=== PATIENT | female | born 1955 | race Caucasian/White ===

== ENCOUNTER 2020-03-27 12:30 | Emergency (ER) | payer MEDICARE, OTHER, SELFPAY ==
[2020-03-27] VITALS (19 sets, daily range): BP systolic 114–154; BP diastolic 56–75; PULSE 73–93; RESP 12–23; TEMP 36.8; O2SAT 82–98; BMI 40.3
[2020-03-27] MEDS: ONDANSETRON 4 MG/2 ML INJ IV (13:23)
--- NOTE | 2020-03-27 13:25 | DI.CT.S_ITS ---
PROCEDURE: CT HEAD/BRAIN WO CON INDICATIONS: dizzy TECHNIQUE: Noncontrast 4.5 mm thick angled axial sections acquired from the foramen magnum to the vertex, with coronal and sagittal reformats. For radiation dose reduction, the following was used: automated exposure control, adjustment of mA and/or kV according to patient size. COMPARISON: None. FINDINGS: Image quality: Excellent. CSF spaces: Basal cisterns are patent. No extra-axial fluid collections. The ventricles are symmetric in size and shape. Brain: No intracranial bleeds or masses. There is cerebral volume loss for age, with resultant ventricular and sulcal prominence. There are periventricular and deep white matter chronic small vessel ischemic changes. There is intracranial internal carotid artery atherosclerosis. Skull and face: Calvarium and visualized facial bones appear intact, without suspicious lesions. Incidental note is made of hyperostosis frontalis. This is not considered to be pathologic in a woman of this age. Sinuses: Visualized sinuses and mastoids are clear. IMPRESSION: Unremarkable intracranial study for age, without an imaging explanation found for the patient's presenting history. If it would be helpful for clinical management decision making, please consider a dedicated IAC protocol MRI (performed without and with contrast) for further evaluation (assuming that there is no contraindication). Dictated by: Noah Blackburn M.D. on 03/27/2020 at 12:32 Approved by: Noah Blackburn M.D. on 03/27/2020 at 12:33
--- NOTE | 2020-03-27 13:28 | ED.DIZZY ---
HPI - Dizziness <MATI Marie-BC - Last Filed: 03/27/20 18:52> General Chief Complaint: Dizziness Stated Complaint: Vertigo Issues Time Seen by Provider: 03/27/20 12:47 Source: patient Mode of arrival: Wheelchair Limitations: no limitations History of Present Illness HPI Narrative: The patient is a 65-year-old female nonsmoker with history of type 2 diabetes and hypertension who presents with a chief complaint of ?I feel like I have been spinning for the past 2 weeks. She states it is getting worse over the past week. She denies any falls or trauma. She does take Dramamine every 4 hours or so. She states that she feels like her ?brain is swimming and that her ?mind is spinning whenever she is moving her head or getting up or down or changing her position. She states that it feels better if she just holds still. She feels nauseous, but has not vomited. She complains of soft stools but no diarrhea. She denies any cough or congestion, does complain of allergy symptoms that have been really bad since November. She states that she has pain and pressure in her sinuses radiating down to her jaw. She does take allergy medicine as well. She denies any ear pain or sore throat. She denies any nasal congestion. She denies any confusion or slurred speech. Related Data Previous Rx's Medication Instructions Recorded meclizine 25 mg PO TID PRN #14 tab 03/27/20 ondansetron 4 mg PO Q6H PRN #20 tab 03/27/20 Allergies Allergy/AdvReac Type Severity Reaction Status Date / Time codeine [CODEINE] Allergy Unknown NAUSEA Verified 03/27/20 12:45 Review of Systems <CHRISTINE Marie - Last Filed: 03/27/20 18:52> Review of Systems Narrative: GENERAL: Denies chills, fatigue, malaise, fever, sweats. HEENT: See HPI RESPIRATORY: Denies dyspnea, cough, wheezing, hemoptysis, sputum. CARDIOVASCULAR: Denies chest pain, palpitations, orthopnea, edema, GASTROINTESTINAL: Denies nausea, vomiting, abdominal pain, diarrhea, constipation, melena. : Denies dysuria, frequency, incontinence, hematuria, urinary retention. MUSCULOSKELETAL: denies weakness, joint pain, or bony pain SKIN: Denies rash, skin lesions, or other NEUROLOGIC: See HPI PSYCHIATRIC: No concerning psychosocial issues. 12 point review of systems is negative except for those stated above Patient History <MARIA LUISA Marie - Last Filed: 03/27/20 18:52> Medical History (Updated 03/27/20 @ 18:30 by MARIA LUISA Marie) Type 2 diabetes mellitus (Acute) Social History Smoking Status: Unknown if ever smoked Smoking Status: Unknown if ever smoked alcohol intake frequency: holidays/special occasions only Substance Use Type: does not use Exam <MARIA LUISA Marie - Last Filed: 03/27/20 18:52> Narrative Exam Narrative: GENERAL: This is a well-nourished, well-developed patient, no acute distress HEAD: Atraumatic. Normocephalic. No temporal or scalp tenderness. EYES: Pupils equal round and reactive. Extraocular motions intact. No scleral icterus. No injection or drainage. ENT: Nose without bleeding, purulent drainage or septal hematoma. Throat without erythema, tonsillar hypertrophy or exudate. Uvula midline. Airway patent. Horizontal nystagmus noted. No vertical nystagmus. Bilateral tympanic membranes with pressure, but pearly hagan NECK: Trachea midline. No JVD or lymphadenopathy. Supple, nontender, no meningeal signs. CARDIOVASCULAR: Regular rate and rhythm RESPIRATORY: Clear to auscultation. Breath sounds equal bilaterally. No wheezes, rales, or rhonchi. No cough. No increased respiratory effort GASTROINTESTINAL: Abdomen soft, non-tender, nondistended. No hepato-splenomegaly, or palpable masses. No guarding. EXTREMITIES: No clubbing, cyanosis, or edema. No joint tenderness, effusion, or edema noted. BACK: Nontender without deformity or crepitance. No flank tenderness. NEURO: AOx3. SKIN: No rash or erythema on visible skin Initial Vital Signs Initial Vital Signs: Vital Signs Temperature 98.2 F 03/27/20 12:40 Pulse Rate 92 H 03/27/20 12:40 Respiratory Rate 14 03/27/20 12:40 Blood Pressure 154/66 H 03/27/20 12:40 Pulse Oximetry 97 03/27/20 12:40 <Galen Crouch MD - Last Filed: 03/28/20 07:57> Initial Vital Signs Initial Vital Signs: Vital Signs Temperature 98.2 F 03/27/20 12:40 Pulse Rate 92 H 03/27/20 12:40 Respiratory Rate 14 03/27/20 12:40 Blood Pressure 154/66 H 03/27/20 12:40 Pulse Oximetry 97 03/27/20 12:40 Scores <CHRISTINE Marie - Last Filed: 03/27/20 18:52> GCS [place] coma scale eye opening: Spontaneous [place] coma scale verbal response: Orientated Jason coma scale motor response: Obey commands [place] coma scale total score: 15 NIH Stroke Scale Level of Conciousness: Alert, keenly responsive Ask month/age: Answers both questions correctly. Open/close eyes, close hand: Performs both tasks correctly Best gaze horizontal: Normal Visual casey: No visual loss Facial palsy: Normal symetrical movement Left arm drift: No drift for full 10 sec Right arm drift: No drift for full 10 sec Left leg drift: No drift for full 10 sec Right leg drift: No drift for full 10 sec Limb ataxia: Absent Sensory on face/arms/legs: Normal, no sensory loss Best language: No aphasia, normal Dysarthria: Normal Extinction or inattention: No abnormality Total NIH Stroke scale score: 0 Course <CHRISTINE Marie - Last Filed: 03/27/20 18:52> Orders Ordered: Discontinued Medications Sodium Chloride (Normal Saline 0.9%) 1,000 mls @ 1,000 mls/hr IV BOLUS ONE Stop: 03/27/20 14:25 Last Infusion: 03/27/20 16:50 Dose: 0 mls/hr Documented by: Admin: 03/27/20 13:45 Dose: 1,000 mls/hr Documented by: DAVIE Meclizine HCl (Antivert) 50 mg PO NOW ONE Stop: 03/27/20 16:49 Last Admin: 03/27/20 17:13 Dose: 50 mg Documented by: GARCÍA Ondansetron HCl (Zofran) 4 mg IV NOW ONE Stop: 03/27/20 13:11 Last Admin: 03/27/20 13:23 Dose: 4 mg Documented by: DAVIE Vital Signs Vital signs: Vital Signs - 8 hr 03/27/20 12:40 03/27/20 12:44 03/27/20 12:45 Temperature 98.2 F Pulse Rate 92 H 93 H 90 Respiratory Rate 14 Blood Pressure 154/66 H 154/66 H Pulse Oximetry 97 97 97 03/27/20 13:00 03/27/20 13:30 03/27/20 13:38 Temperature Pulse Rate 81 79 78 Respiratory Rate 19 20 Blood Pressure 143/65 H 126/60 Pulse Oximetry 98 97 98 03/27/20 14:00 03/27/20 14:30 03/27/20 14:35 Temperature Pulse Rate 73 86 80 Respiratory Rate 21 Blood Pressure 114/56 L 128/75 Pulse Oximetry 97 97 98 03/27/20 15:00 03/27/20 15:30 03/27/20 16:00 Temperature Pulse Rate 81 77 81 Respiratory Rate 14 18 17 Blood Pressure 122/58 L 123/58 L 129/60 Pulse Oximetry 98 97 97 03/27/20 17:19 03/27/20 17:20 03/27/20 17:30 Temperature Pulse Rate 80 81 78 Respiratory Rate 12 16 Blood Pressure 130/58 L Pulse Oximetry 82 L 97 98 03/27/20 17:31 03/27/20 18:05 03/27/20 18:30 Temperature Pulse Rate 79 92 H 79 Respiratory Rate 21 23 15 Blood Pressure 126/58 L Pulse Oximetry 98 97 97 03/27/20 18:31 Temperature Pulse Rate 79 Respiratory Rate 15 Blood Pressure 121/57 L Pulse Oximetry 97 <Galen Crouch MD - Last Filed: 03/28/20 07:57> Orders Ordered: Discontinued Medications Sodium Chloride (Normal Saline 0.9%) 1,000 mls @ 1,000 mls/hr IV BOLUS ONE Stop: 03/27/20 14:25 Last Infusion: 03/27/20 16:50 Dose: 0 mls/hr Documented by: Admin: 03/27/20 13:45 Dose: 1,000 mls/hr Documented by: DAVIE Meclizine HCl (Antivert) 50 mg PO NOW ONE Stop: 03/27/20 16:49 Last Admin: 03/27/20 17:13 Dose: 50 mg Documented by: GARCÍA Ondansetron HCl (Zofran) 4 mg IV NOW ONE Stop: 03/27/20 13:11 Last Admin: 03/27/20 13:23 Dose: 4 mg Documented by: DAVIE Vital Signs Vital signs: Vital Signs - 8 hr 03/27/20 12:40 03/27/20 12:44 03/27/20 12:45 Temperature 98.2 F Pulse Rate 92 H 93 H 90 Respiratory Rate 14 Blood Pressure 154/66 H 154/66 H Pulse Oximetry 97 97 97 03/27/20 13:00 03/27/20 13:30 03/27/20 13:38 Temperature Pulse Rate 81 79 78 Respiratory Rate 19 20 Blood Pressure 143/65 H 126/60 Pulse Oximetry 98 97 98 03/27/20 14:00 03/27/20 14:30 03/27/20 14:35 Temperature Pulse Rate 73 86 80 Respiratory Rate 21 Blood Pressure 114/56 L 128/75 Pulse Oximetry 97 97 98 03/27/20 15:00 03/27/20 15:30 03/27/20 16:00 Temperature Pulse Rate 81 77 81 Respiratory Rate 14 18 17 Blood Pressure 122/58 L 123/58 L 129/60 Pulse Oximetry 98 97 97 03/27/20 17:19 03/27/20 17:20 03/27/20 17:30 Temperature Pulse Rate 80 81 78 Respiratory Rate 12 16 Blood Pressure 130/58 L Pulse Oximetry 82 L 97 98 03/27/20 17:31 03/27/20 18:05 03/27/20 18:30 Temperature Pulse Rate 79 92 H 79 Respiratory Rate 21 23 15 Blood Pressure 126/58 L Pulse Oximetry 98 97 97 03/27/20 18:31 Temperature Pulse Rate 79 Respiratory Rate 15 Blood Pressure 121/57 L Pulse Oximetry 97 MDM - Dizziness <MATI Marie- - Last Filed: 03/27/20 18:52> Lab Data Result diagrams: 03/27/20 13:30 03/27/20 13:30 Labs: Lab Results 03/27/20 03/27/20 03/27/20 Range/Units 13:30 13:30 13:30 WBC 13.8 H (4.5-11.0) X10^3/uL RBC 4.60 (4.0-5.2) X10^6/uL Hgb 13.3 (12.0-16.0) g/dL Hct 40.0 (36-46) % MCV 87.0 (80-100) fL MCH 28.9 (26-34) PG MCHC 33.2 (30-36) % RDW 13.7 (11.6-14.8) % Plt Count 288 (150-400) X10^3/uL Neut % (Auto) 68.8 (50-75) % Lymph % (Auto) 20.8 L (25-40) % [place] % (Auto) 7.8 (3-14) % Eos % (Auto) 1.8 L (2-4) % Baso % (Auto) 0.8 (0-2) % Neut # (Auto) 9500 H (3953-5848) /uL Lymph # (Auto) 2900 (7474-7375) /uL [place] # (Auto) 1100 H (0-900) /uL Eos # (Auto) 200 (0-450) /uL Baso # (Auto) 100 (0-100) /uL PT 12.7 (10.1-12.7) SECONDS INR 1.1 (0.9-1.3) Sodium 140 (137-145) mmol/L Potassium 4.0 (3.4-5.1) mmol/L Chloride 102 (98-107) mmol/L Carbon Dioxide 27 (22-32) mmol/L BUN 19 H (7-17) mg/dL Creatinine 0.78 (0.52-1.04) mg/dL Estimated GFR > 60.0 (>60) mL/min BUN/Creatinine Ratio 24.4 H (6-22) Glucose 100 (80-110) mg/dL Calcium 10.1 (8.4-10.2) mg/dL Magnesium 1.8 (1.6-2.3) mg/dL Total Bilirubin 0.5 (0.2-1.3) mg/dL AST 36 (14-36) IU/L ALT 25 (<35) IU/L Alkaline Phosphatase 79 (38-126) U/L Troponin I < 0.012 (0.01-0.034) ng/mL Total Protein 8.4 H (6.3-8.2) g/dL Albumin 4.6 (3.5-5.0) g/dL Globulin 3.8 (1.7-4.1) g/dL Albumin/Globulin Ratio 1.2 (1.0-2.8) Urine RBC (0-5/HPF) Urine WBC (0-5/HPF) Ur Squamous Epith Cells (0-5/HPF) Urine Bacteria (None) Ur Culture Indicated? 03/27/20 03/27/20 Range/Units 14:33 16:06 WBC (4.5-11.0) X10^3/uL RBC (4.0-5.2) X10^6/uL Hgb (12.0-16.0) g/dL Hct (36-46) % MCV (80-100) fL MCH (26-34) PG MCHC (30-36) % RDW (11.6-14.8) % Plt Count (150-400) X10^3/uL Neut % (Auto) (50-75) % Lymph % (Auto) (25-40) % [place] % (Auto) (3-14) % Eos % (Auto) (2-4) % Baso % (Auto) (0-2) % Neut # (Auto) (3422-7355) /uL Lymph # (Auto) (0460-0446) /uL [place] # (Auto) (0-900) /uL Eos # (Auto) (0-450) /uL Baso # (Auto) (0-100) /uL PT (10.1-12.7) SECONDS INR (0.9-1.3) Sodium (137-145) mmol/L Potassium (3.4-5.1) mmol/L Chloride (98-107) mmol/L Carbon Dioxide (22-32) mmol/L BUN (7-17) mg/dL Creatinine (0.52-1.04) mg/dL Estimated GFR (>60) mL/min BUN/Creatinine Ratio (6-22) Glucose (80-110) mg/dL Calcium (8.4-10.2) mg/dL Magnesium (1.6-2.3) mg/dL Total Bilirubin (0.2-1.3) mg/dL AST (14-36) IU/L ALT (<35) IU/L Alkaline Phosphatase (38-126) U/L Troponin I < 0.012 (0.01-0.034) ng/mL Total Protein (6.3-8.2) g/dL Albumin (3.5-5.0) g/dL Globulin (1.7-4.1) g/dL Albumin/Globulin Ratio (1.0-2.8) Urine RBC None seen (0-5/HPF) Urine WBC 5-10/hpf H (0-5/HPF) Ur Squamous Epith Cells 1-5 /hpf (0-5/HPF) Urine Bacteria Occasional (0-1) (None) Ur Culture Indicated? Specimen cultured Urine Dip Bedside Urine Glucose Negative Bedside Urine Bilirubin - Negative Bedside Urine Ketone - Negative Urine Specific [place] 1.010 Bedside Urine Occult Blood +/- Bedside Urine pH 6.0 Bedside Urine Protein - Negative Bedside Urine Urobilinogen - Negative Bedside Urine Nitrite - Negative Bedside Urine Leukocytes ++ [address] scan - head: Radiologist's Impression: [address] [place] [id number] Scan Report Signed Patient: Bernard Montelongo VMR#: [id number] : 5Acct:[id number] Age/Sex: 65 / FDate of Service: 03/27/20 Loc: ED Accession Number: [id number] Procedure: CT head/brain wo con Ordering Provider: Claudia Ying [facility] PROCEDURE: CT HEAD/BRAIN WO CON INDICATIONS: dizzy TECHNIQUE: Noncontrast 4.5 mm thick angled axial sections acquired from the foramen magnum to the vertex, with coronal and sagittal reformats. For radiation dose reduction, the following was used: automated exposure control, adjustment of mA and/or kV according to patient size. COMPARISON: None. FINDINGS: Image quality: Excellent. CSF spaces: Basal cisterns are patent. No extra-axial fluid collections. The ventricles are symmetric in size and shape. Brain: No intracranial bleeds or masses. There is cerebral volume loss for age, with resultant ventricular and sulcal prominence. There are periventricular and deep white matter chronic small vessel ischemic changes. There is intracranial internal carotid artery atherosclerosis. Skull and face: Calvarium and visualized facial bones appear intact, without suspicious lesions. Incidental note is made of hyperostosis frontalis. This is not considered to be pathologic in a woman of this age. Sinuses: Visualized sinuses and mastoids are clear. IMPRESSION: Unremarkable intracranial study for age, without an imaging explanation found for the patient's presenting history. If it would be helpful for clinical management decision making, please consider a dedicated IAC protocol MRI (performed without and with contrast) for further evaluation (assuming that there is no contraindication). Dictated by: Noah Blackburn M.D. on 03/27/2020 at 12:32 Approved by: Noah Blackburn M.D. on 03/27/2020 at 12:33 ECG Data Attestation: I personally reviewed and interpreted this ECG as follows: Interpretation: Sinus rhythm. Ventricular 85. P.r. interval 140. QRS [address] Willa PERSAUD Narrative Medical decision making narrative: The patient is a 65-year-old female nonsmoker presents with a chief complaint of worsening spinning sensation over the past few weeks. Her exam correlates with BPPV given that she has vertigo symptoms when turning her head and moving. She has symptoms when she is staying still. She has initial negative troponin, 3 hour repeat troponin, normal head CT, NIH of 0. Head CT was done and given age risk factors of obesity and type 2 diabetes, but came back negative for any acute findings. She has a urine culture pending, though no urinary symptoms so we will hold off on treatment at this point time. She feels much improved after the above-stated therapies, is requesting to go home multiple times. We did contact physical therapy to see if they could come evaluate her, but unfortunately your too busy today. Patient plans on following up with primary care provider in the next few days. She will call her tomorrow. I did discuss the possibility of further imaging such as MRI, but patient would like to go home at this point time. I discussed at length strict return precautions including any neurological changes etcetera. Patient was able to ambulate steadily with a walker, states she feels much improved. Patient has no questions or concerns upon discharge and states understanding of return precautions as well as follow-up care. <Galen Crouch MD - Last Filed: 03/28/20 07:57> Lab Data Labs: Lab Results 03/27/20 03/27/20 03/27/20 Range/Units 13:30 13:30 13:30 WBC 13.8 H (4.5-11.0) X10^3/uL RBC 4.60 (4.0-5.2) X10^6/uL Hgb 13.3 (12.0-16.0) g/dL Hct 40.0 (36-46) % MCV 87.0 (80-100) fL MCH 28.9 (26-34) PG MCHC 33.2 (30-36) % RDW 13.7 (11.6-14.8) % Plt Count 288 (150-400) X10^3/uL Neut % (Auto) 68.8 (50-75) % Lymph % (Auto) 20.8 L (25-40) % [place] % (Auto) 7.8 (3-14) % Eos % (Auto) 1.8 L (2-4) % Baso % (Auto) 0.8 (0-2) % Neut # (Auto) 9500 H (8192-8299) /uL Lymph # (Auto) 2900 (8397-3951) /uL [place] # (Auto) 1100 H (0-900) /uL Eos # (Auto) 200 (0-450) /uL Baso # (Auto) 100 (0-100) /uL PT 12.7 (10.1-12.7) SECONDS INR 1.1 (0.9-1.3) Sodium 140 (137-145) mmol/L Potassium 4.0 (3.4-5.1) mmol/L Chloride 102 (98-107) mmol/L Carbon Dioxide 27 (22-32) mmol/L BUN 19 H (7-17) mg/dL Creatinine 0.78 (0.52-1.04) mg/dL Estimated GFR > 60.0 (>60) mL/min BUN/Creatinine Ratio 24.4 H (6-22) Glucose 100 (80-110) mg/dL Calcium 10.1 (8.4-10.2) mg/dL Magnesium 1.8 (1.6-2.3) mg/dL Total Bilirubin 0.5 (0.2-1.3) mg/dL AST 36 (14-36) IU/L ALT 25 (<35) IU/L Alkaline Phosphatase 79 (38-126) U/L Troponin I < 0.012 (0.01-0.034) ng/mL Total Protein 8.4 H (6.3-8.2) g/dL Albumin 4.6 (3.5-5.0) g/dL Globulin 3.8 (1.7-4.1) g/dL Albumin/Globulin Ratio 1.2 (1.0-2.8) Urine RBC (0-5/HPF) Urine WBC (0-5/HPF) Ur Squamous Epith Cells (0-5/HPF) Urine Bacteria (None) Ur Culture Indicated? 03/27/20 03/27/20 Range/Units 14:33 16:06 WBC (4.5-11.0) X10^3/uL RBC (4.0-5.2) X10^6/uL Hgb (12.0-16.0) g/dL Hct (36-46) % MCV (80-100) fL MCH (26-34) PG MCHC (30-36) % RDW (11.6-14.8) % Plt Count (150-400) X10^3/uL Neut % (Auto) (50-75) % Lymph % (Auto) (25-40) % [place] % (Auto) (3-14) % Eos % (Auto) (2-4) % Baso % (Auto) (0-2) % Neut # (Auto) (6549-7973) /uL Lymph # (Auto) (5976-5593) /uL [place] # (Auto) (0-900) /uL Eos # (Auto) (0-450) /uL Baso # (Auto) (0-100) /uL PT (10.1-12.7) SECONDS INR (0.9-1.3) Sodium (137-145) mmol/L Potassium (3.4-5.1) mmol/L Chloride (98-107) mmol/L Carbon Dioxide (22-32) mmol/L BUN (7-17) mg/dL Creatinine (0.52-1.04) mg/dL Estimated GFR (>60) mL/min BUN/Creatinine Ratio (6-22) Glucose (80-110) mg/dL Calcium (8.4-10.2) mg/dL Magnesium (1.6-2.3) mg/dL Total Bilirubin (0.2-1.3) mg/dL AST (14-36) IU/L ALT (<35) IU/L Alkaline Phosphatase (38-126) U/L Troponin I < 0.012 (0.01-0.034) ng/mL Total Protein (6.3-8.2) g/dL Albumin (3.5-5.0) g/dL Globulin (1.7-4.1) g/dL Albumin/Globulin Ratio (1.0-2.8) Urine RBC None seen (0-5/HPF) Urine WBC 5-10/hpf H (0-5/HPF) Ur Squamous Epith Cells 1-5 /hpf (0-5/HPF) Urine Bacteria Occasional (0-1) (None) Ur Culture Indicated? Specimen cultured Urine Dip Bedside Urine Glucose Negative Bedside Urine Bilirubin - Negative Bedside Urine Ketone - Negative Urine Specific [place] 1.010 Bedside Urine Occult Blood +/- Bedside Urine pH 6.0 Bedside Urine Protein - Negative Bedside Urine Urobilinogen - Negative Bedside Urine Nitrite - Negative Bedside Urine Leukocytes ++ 125 Esterase Discharge Plan Departure Patient Disposition: Home Clinical Impression: Vertigo Discharge Date/Time: 03/27/20 18:50 Instructions: DI for Vertigo, DI for Dizziness-Nonvertigo Activity Restrictions/Additional Instructions: Thank you for trusting us with your care today Please follow-up with primary care provider in the next few days. As I discussed you may benefit from physical therapy. I sent 2 prescriptions to [facility]. Please come back to the emergency department for any acute concerns. This includes concern of heart attack, stroke etcetera. Prescriptions: New meclizine 25 mg tablet 25 mg PO TID PRN (Reason: motion sickness) Qty: 14 RF: 0 ondansetron 4 mg tablet,disintegrating 4 mg PO Q6H PRN (Reason: nausea and vomiting) Qty: 20 RF: 0 Referrals: Jody Zee [Non-Staff] - Maria D Hicks DO [Primary Care Provider] - <Galen Crouch MD - Last Filed: 03/28/20 07:57> Cosign ED Attending Cosignature Attestation: I was immediately available in the department for consultation. This documentation has been reviewed and I agree with assessment and plan. Supervised by Galen Crouch MD
[2020-03-27] MEDS: SODIUM CHLORIDE 0.9% 1,000 ML 1000 ML IV (13:45)
[2020-03-27 13:46] LABS: Add Manual Diff / Slide Review NO; Basophils Absolute Auto 100 /uL (0-100); Basophils Percent Auto 0.8 % (0-2); Eosinophils Absolute Auto 200 /uL (0-450); Eosinophils Percent Auto 1.8 % (2-4); Hemoglobin 13.3 g/dL (12.0-16.0); Lymphocytes Absolute Auto 2900 /uL (1100-4500); Lymphocytes Percent Auto 20.8 % (25-40); Mean Corpuscular HGB Conc 33.2 % (30-36); Mean Corpuscular Hemoglobin 28.9 PG (26-34); Monocytes Absolute Auto 1100 /uL (0-900); Monocytes Percent Auto 7.8 % (3-14); Neutrophils Absolute Auto 9500 /uL (1500-7000); Neutrophils Percent Auto 68.8 % (50-75); Platelet Count 288 X10^3/uL (150-400); Red Cell Distribution Width 13.7 % (11.6-14.8); White Blood Cell Count 13.8 X10^3/uL (4.5-11.0)
[2020-03-27 13:56] LABS: INR 1.1 (0.9-1.3); Prothrombin Time 12.7 SECONDS (10.1-12.7)
[2020-03-27 14:02] LABS: Alanine Aminotransferase 25 IU/L (<35); Albumin 4.6 g/dL (3.5-5.0); Albumin Globulin Ratio 1.2 (1.0-2.8); Alkaline Phosphatase 79 U/L (38-126); Aspartate Aminotransferase 36 IU/L (14-36); BUN Creatinine Ratio 24.4 (6-22); Bilirubin Total 0.5 mg/dL (0.2-1.3); Blood Urea Nitrogen 19 mg/dL (7-17); Calcium 10.1 mg/dL (8.4-10.2); Carbon Dioxide 27 mmol/L (22-32); Chloride 102 mmol/L (98-107); Estimated Glomerular Filt Rate > 60.0 mL/min (>60); Globulin 3.8 g/dL (1.7-4.1); Glucose 100 mg/dL (80-110); HEMOLYSIS 27 (0-50); Magnesium 1.8 mg/dL (1.6-2.3); Sodium 140 mmol/L (137-145); Total Protein 8.4 g/dL (6.3-8.2)
[2020-03-27 14:11] LABS: Troponin I < 0.012 ng/mL (0.01-0.034)
[2020-03-27 14:46] LABS: RBC Urine None Seen (0-5/HPF)
[2020-03-27 15:13] LABS: Bacteria Urine Occasional (0-1); Culture Indicated Urine Specimen Cultured; Squamous Epithelial Cell Urine 1-5 /HPF (0-5/HPF); WBC Urine 5-10/HPF (0-5/HPF)
[2020-03-27 16:35] LABS: Troponin I < 0.012 ng/mL (0.01-0.034)
[2020-03-27] MEDS: MECLIZINE HCL 12.5 MG TABLET 50 MG PO (17:13)
== END 2020-03-27 18:50 | disposition home or self-care (01) ==
PROVIDERS: Emergency Provider Nurse Practitioner Family; Family Provider Internal Medicine; PCP Family Medicine; Referring Provider Internal Medicine
DX: R42 Dizziness and giddiness (principal); E11.9 Type 2 diabetes mellitus without complications; I10 Essential (primary) hypertension; R11.0 Nausea
CPT/HCPCS: 36415; 70450; 80053; 81003; 81015; 83735; 84484; 85025; 85610; 87077; 87086; 87147; 93005; 93010; 96361; 96374; 99284; J2405

== ENCOUNTER 2020-08-28 10:13 | Emergency (ER) | payer MEDICARE, OTHER, SELFPAY ==
--- NOTE | 2020-08-28 10:16 | ED.URI ---
HPI - URI/Sore Throat General Chief Complaint: Upper Respiratory Symptoms Stated Complaint: thinks she has strep throat Time Seen by Provider: 08/28/20 10:16 History of Present Illness HPI Narrative: 65-year-old woman with hypertension and type 2 diabetes presents with 5 days of increasing pharyngeal pain right greater than left, fatigue, poor sleep, decrease in taste, diarrhea but no fever, no cough no chest pain, vomiting, dyspnea, palpitations or skin changes/rashes. No obvious COVID exposure and no one else at home is ill Related Data Previous Rx's Medication Instructions Recorded meclizine 25 mg PO TID PRN #14 tab 03/27/20 ondansetron 4 mg PO Q6H PRN #20 tab 03/27/20 Allergies Allergy/AdvReac Type Severity Reaction Status Date / Time codeine [CODEINE] Allergy Unknown NAUSEA Verified 08/28/20 10:28 Review of Systems Review of Systems Narrative: Remainder of review of systems including constitutional, ENT, cardiovascular, respiratory, GI, , musculoskeletal, skin, neurologic and psychiatric systems reviewed and are unremarkable except as noted in HPI. Patient History Medical History Hypertension Type 2 diabetes mellitus Surgical History History of tonsillectomy and adenoidectomy Social History Smoking Status: Unknown if ever smoked Smoking Status: Unknown if ever smoked alcohol intake frequency: holidays/special occasions only Substance Use Type: does not use Exam Narrative Exam Narrative: General: Healthy appearing, in mild distress. Able to give a complete and coherent history. Well-nourished well-developed HEENT: Moist mucous membranes, normal sclera with reactive pupils, mild erythema over the right posterior tonsillar pillar without abscess, uvula deviation, or exudate Neck: No JVD, supple Respiratory: Lungs are clear to auscultation, no wheezing no rales no rhonchi. Full and symmetrical air movement Cardiac: Regular rate and rhythm, 3/6 systolic ejection murmur, no bruits Abdomen: Soft nontender good bowel tones, no flank pain Skin: Mildly diaphoretic, no rashes Psych: Cooperative, appropriate insight and affect Initial Vital Signs Initial Vital Signs: Vital Signs Temperature 98.0 F 08/28/20 10:23 Pulse Rate 96 H 08/28/20 10:23 Respiratory Rate 15 08/28/20 10:23 Blood Pressure 133/70 08/28/20 10:23 Pulse Oximetry 98 08/28/20 10:23 Course Orders Ordered: ED Orders 08/28/20 10:16 COVID19 Stat Vital Signs Vital signs: Vital Signs - 8 hr 08/28/20 10:23 Temperature 98.0 F Pulse Rate 96 H Respiratory Rate 15 Blood Pressure 133/70 Pulse Oximetry 98 MDM - URI/Sore Throat Medical Records Attestation: I reviewed the patient's medical records. Lab Data Attestation: I reviewed the patient's lab results. Labs: Lab Results 08/28/20 Range/Units 10:21 COVID-19 PCR Negative (Negative) Point of Care Testing Rapid Strep A Negative MDM Narrative Medical decision making narrative: 65-year-old woman with sore throat mild upper respiratory symptoms for the last 5 days. COVID and strep throat negative. No evidence of pneumonia and clinical exam and vitals do not suggest severe infection or sepsis. Conservative management. Reassurance is given. She is safe for home discharge Discharge Plan Departure Patient Disposition: Home Clinical Impression: Pharyngitis Qualifiers: Pharyngitis/tonsillitis etiology: unspecified etiology Qualified Code(s): J02.9 - Acute pharyngitis, unspecified Instructions: DI for Viral Pharyngitis Activity Restrictions/Additional Instructions: Thank you for coming in today You do not have COVID and you do not have strep throat. You do have some other virus that is causing your sore throat. Most viruses are going to get better within 7-10 days with conservative management. Please do use warm salt water washes to get rid of the yucky taste in the back of your throat. Using 400 mg of ibuprofen (2 [id number] pills) and 1 Tylenol every 6 hours can be very helpful in controlling pain. If you find that you are having worsening symptoms, developing any shortness of breath, a productive cough or new findings please feel free to return to the ER for further evaluation I hope you feel better quickly Prescriptions: No Action meclizine 25 mg tablet 25 mg PO TID PRN (Reason: motion sickness) Qty: 14 RF: 0 ondansetron 4 mg tablet,disintegrating 4 mg PO Q6H PRN (Reason: nausea and vomiting) Qty: 20 RF: 0 Referrals: Maria D Hicks DO [Primary Care Provider] -
[2020-08-28 10:23] VITALS: BP 133/70; PULSE 96; RESP 15; TEMP 36.7; O2SAT 98; BMI 41.9
[2020-08-28 10:47] LABS: COVID19 -Nasal RAPID Negative (Negative)
== END 2020-08-28 11:09 | disposition home or self-care (01) ==
PROVIDERS: Emergency Provider Emergency Medicine; Family Provider Internal Medicine; PCP Family Medicine
DX: J02.9 Acute pharyngitis, unspecified (principal); R53.83 Other fatigue; Z20.828 Contact with and (suspected) exposure to other viral communicable diseases; I10 Essential (primary) hypertension; E11.9 Type 2 diabetes mellitus without complications
CPT/HCPCS: 87635; 87880; 99281; 99282

== ENCOUNTER → 2021-08-06 09:44 | Outpatient (CLI) | payer MEDICARE, OTHER, SELFPAY | PROVIDERS: Family Provider Internal Medicine; PCP Internal Medicine; Referring Provider Internal Medicine; Visit Provider Internal Medicine | DX: Z78.0 Asymptomatic menopausal state (principal); E11.9 Type 2 diabetes mellitus without complications; Z87.891 Personal history of nicotine dependence | CPT/HCPCS: 77080 ==

== ENCOUNTER → 2021-08-26 11:28 | Outpatient (CLI) | payer MEDICARE, OTHER, SELFPAY ==
--- NOTE | 2021-08-26 | DI.MG.S_ITS ---
BILATERAL DIGITAL SCREENING MAMMOGRAM 3D/2D WITH CAD: 08/26/2021 CLINICAL: Routine screening. Family history of breast cancer. Comparison is made to exams dated: 07/13/2018 mammogram, 05/27/2017 mammogram, and 06/04/2016 mammogram - outside facility. The tissue of both breasts is predominantly fatty. Current study was also evaluated with a Computer Aided Detection (CAD) system. No significant masses, calcifications, or other findings are seen in either breast. There has been no significant interval change. IMPRESSION: NEGATIVE There is no mammographic evidence of malignancy. A 1 year screening mammogram is recommended. This exam was interpreted at Station ID: [id number]. NOTE: For mammograms, a report in lay terms will be sent to the patient. Approximately 15% of breast malignancies will not be visualized mammographically. In the management of a palpable breast mass, a negative mammogram must not discourage biopsy of a clinically suspicious lesion. Electronically Signed By: Bladimir Garcia acr/penrad:08/26/2021 12:00:59 letter sent: Normal Exam ACR BI-RADS Category 1: Negative [id number]
== END ==
PROVIDERS: Family Provider Internal Medicine; PCP Internal Medicine; Referring Provider Internal Medicine; Visit Provider Internal Medicine
DX: Z12.31 Encounter for screening mammogram for malignant neoplasm of breast (principal); Z80.3 Family history of malignant neoplasm of breast
CPT/HCPCS: 77063; 77067